=== PATIENT | female | born 1950 | race Caucasian/White ===

== ENCOUNTER 2017-01-15 23:50 | Emergency (ER) | payer BC, OTHER ==
[~2017-01-15] VITALS: Ht 157.5 cm; Wt 82.0 kg
[~2017-01-15 23:50] MED LIST: LANS30CA47 PO
[2017-01-15 23:53] VITALS: Ht 157.5 cm; Wt 82.0 kg
--- NOTE | 2017-01-16 01:51 | ERD ---
ER Documentation Chief Complaint Date/Time DATE: 01/16/17 TIME: 01:51 Chief Complaint pain with urination since Sunday HPI This is a 66-year-old female with a pain with urination since Sunday. She denies any fevers or chills. Denies any flank pain. Denies any nausea vomiting. Denies any other current issues. No blood in urine. ROS All systems reviewed and are negative except as per history of present illness. Medications Home Meds Reported Medications Lansoprazole* (Prevacid*) 30 Mg Capsule.dr, 30 MG PO BID 07/27/12 Allergies Allergies: Coded Allergies: No Known Allergy (Unverified , 07/27/12) PMhx/Soc History of Surgery: Yes (HYSTERECTOMY, GASTRIC SURGERY) Anesthesia Reaction: No Hx Neurological Disorder: No Hx Respiratory Disorders: No Hx Cardiac Disorders: No Hx Psychiatric Problems: No Hx Alcohol Use: No Hx Substance Use: No Hx Tobacco Use: No Physical Exam Vitals Vital Signs Date Time Temp Pulse Resp B/P Pulse Ox O2 Delivery O2 Flow Rate FiO2 01/15/17 23:53 99.2 77 18 156/82 98 Physical Exam Const: [] Head: Atraumatic Eyes: Normal Conjunctiva ENT: Normal External Ears, Nose and Mouth. Neck: Full range of motion..~ No meningismus. Resp: Clear to auscultation bilaterally Cardio: Regular rate and rhythm, no murmurs Abd: Soft, non tender, non distended. Normal bowel sounds Skin: No petechiae or rashes Back: No midline or flank tenderness Ext: No cyanosis, or edema Neur: Awake and alert Psych: Normal Mood and Affect Procedures/MDM Medical decision-makin 6 year female clinically with UTI. Patient has culture sent off. Pending culture, patient be discharged home with ciprofloxacin. Pyridium for pain. Follow-up with PMD. Return for worsening symptoms. Departure Diagnosis: Primary Impression: UTI (urinary tract infection) Urinary tract infection type: acute cystitis Hematuria presence: without hematuria Qualified Code: N30.00 - Acute cystitis without hematuria Condition: Stable MAGDALENA SUEFunmi Jan 16, 2017 01:51
[2017-01-16] MEDS ORDERED: PHEN-538 PO (01:53)
[2017-01-16] MEDS ORDERED: CIPR500T4 PO (01:53)
[2017-01-16 01:58] LABS: URINE BLOOD (Dip) POC 2+ (NEGATIVE)
[2017-01-16] MEDS ORDERED: CIPROFLOXACIN 500 MG TAB PO ONE (02:30)
[2017-01-16] MEDS ORDERED: PHENAZOPYRIDINE 100 MG TAB PO ONE (02:30)
[2017-01-16 03:17] LABS: ADD UMIC YES; URINE BILIRUBIN (Dip) NEGATIVE (NEGATIVE); URINE BLOOD (Dip) 3+ (NEGATIVE); URINE COLOR BROWN (YELLOW); URINE GLUCOSE (Dip) NEGATIVE (NEGATIVE); URINE KETONES (Dip) NEGATIVE (NEGATIVE); URINE LEUKOCYTE ESTERASE (Dip) 3+ (NEGATIVE); URINE NITRITE (Dip) NEGATIVE (NEGATIVE); URINE TOTAL PROTEIN (Dip) 2+ (NEGATIVE); URINE UROBILINOGEN (Dip) 0.2 E.U./dL (0.1-1.0)
[2017-01-16 04:07] LABS: BACTERIA,URINE MODERATE; SQUAMOUS EPITHELIAL CELL,UR FEW; URINE RBCS >200 /HPF (0)
== END 2017-01-16 02:23 | disposition home or self-care (01) ==
LOC: E/R 23:50
DX: N30.00 Acute cystitis without hematuria (principal)
CPT/HCPCS: 81001; 81003; 87086; 99283

== ENCOUNTER 2017-05-06 12:27 | Emergency (ER) | payer OTHER ==
[~2017-05-06] VITALS: Ht 165.1 cm; Wt 79.1 kg
[~2017-05-06 12:27] MED LIST changes: +CIPR500T4 PO; +PHEN-538 PO
[2017-05-06 12:30] VITALS: Ht 165.1 cm; Wt 79.1 kg
[2017-05-06] MEDS ORDERED: ALBUTEROL 0.5% (NEB) 2.5 MG/0.5 ML AMP INH STA (13:10)
[2017-05-06] MEDS ORDERED: METHYLPREDNISOLONE 125 MG INJ IM STA (13:10)
[2017-05-06] MEDS ORDERED: PRED20TA PO (15:25)
[2017-05-06] MEDS ORDERED: ALBU8.5H3 INH (15:25)
[2017-05-06] MEDS ORDERED: AZIT250T94 PO (15:25)
--- NOTE | 2017-05-06 15:29 | ERD ---
ER Documentation Chief Complaint Date/Time DATE: 05/06/17 TIME: 15:26 Chief Complaint cough, sob, after breathing tx @ clinic HPI This is a the 66-year-old female here for cough and wheezing. The patient states she has had a cough for 3 or 4 days and had some wheezing today so she went to an outside clinic and she was sent here. Patient says she has had this multiple times over the past year. There is no productive cough, no fever, no chest pain no dyspnea on exertion or orthopnea. ROS All systems reviewed and are negative except as per history of present illness. Medications Home Meds Active Scripts Albuterol Sulfate* (Proair HFA*) 8.5 Gm Hfa.aer.ad, 2 PUFF INH Q4, #1 INHALER Prov:BRENDAN HERNANDEZ DO 05/06/17 Azithromycin* (Zithromax*) 250 Mg Tablet, 250 MG PO .ZPACK DIRECTED, #6 TAB TAKE 500 MG (2 TABS) THE FIRST DAY THEN 250 MG (1 TAB) DAYS 2-5 Prov:BRENDAN HERNANDEZ DO 05/06/17 Prednisone* (Prednisone*) 20 Mg Tab, 60 MG PO DAILY for 5 Days, TAB Prov:BRENDAN HERNANDEZ DO 05/06/17 Phenazopyridine Hcl* (Pyridium*) 200 Mg Tab, 200 MG PO TID Y for URINARY PAIN, # 6 TAB Prov:MAGDALENA SUE 01/16/17 Ciprofloxacin Hcl* (Ciprofloxacin Hcl*) 500 Mg Tablet, 500 MG PO BID for 5 Days , TAB Prov:MAGDALENA SUE 01/16/17 Reported Medications Lansoprazole* (Prevacid*) 30 Mg Capsule.dr, 30 MG PO BID 07/27/12 Allergies Allergies: Coded Allergies: No Known Allergy (Unverified , 07/27/12) PMhx/Soc History of Surgery: Yes (HYSTERECTOMY, GASTRIC SURGERY) Anesthesia Reaction: No Hx Neurological Disorder: No Hx Respiratory Disorders: No Hx Cardiac Disorders: No Hx Psychiatric Problems: No Hx Alcohol Use: No Hx Substance Use: No Hx Tobacco Use: No Smoking Status: Never smoker FmHx Family History: No coronary disease Physical Exam Vitals Vital Signs Date Time Temp Pulse Resp B/P Pulse Ox O2 Delivery O2 Flow Rate FiO2 05/06/17 13:25 66 18 96 21 05/06/17 12:30 98.3 65 24 161/69 99 Physical Exam Const: Well-developed, well-nourished Head: Atraumatic, normocephalic Eyes: Normal Conjunctiva, PERRLA, EOMI, normal sclera, no nystagmus ENT: Normal External Ears, Nose and Mouth, moist mucus membranes. Neck: Full range of motion. No meningismus, no lymphadenopathy. Resp: [No increased work of breathing, good air movement, there is diffuse bilateral wheezing Cardio: Regular rate and rhythm, no murmurs, S1 S2 present Abd: Soft, non tender x 4, non distended. Normal bowel sounds, no guarding or rebound, no pulsitile abdominal masses or bruits Skin: No petechiae or rashes, no ecchymosis , no maculopapular rash Back: No midline or flank tenderness Ext: No cyanosis, or edema, FROM x 4, normal inspection, neurovascularly intact x 4 Neur: Awake and alert, STR 5/5 x 4, sensation intact x 4, no focal findings, cerebellum intact Psych: Normal Mood and Affect Results 24 hrs Current Medications Medications (Trade) Dose Ordered Sig/Neftali Route PRN Reason Start Time Stop Time Status Last Admin Dose Admin Albuterol (Proventil 0.5% (Neb)) 10 mg ONCE STAT INH 05/06/17 13:10 05/06/17 13:12 DC 05/06/17 13:23 Methylprednisolone Sodium Succinate (Solu-Medrol) 125 mg ONCE STAT IM 05/06/17 13:10 05/06/17 13:12 DC 05/06/17 13:19 Procedures/MDM After breathing treatment patient's lung sounds are clear she feels much better. We will discharge home with asthmatic bronchitis/reactive airway disease Departure Diagnosis: Primary Impression: Bronchitis Condition: Stable Patient Instructions: Bronchitis With Wheezing (Adult) BRENDAN HERNANDEZ DO May 06, 2017 15:29
== END 2017-05-06 15:32 | disposition home or self-care (01) ==
LOC: E/R 12:27
DX: J20.9 Acute bronchitis, unspecified (principal)
CPT/HCPCS: 94644; 96372; 99284; J2930

== ENCOUNTER 2019-04-13 19:12 | Emergency (ER) | payer MEDICARE, BC ==
[~2019-04-13] VITALS: Ht 170.2 cm; Wt 77.6 kg
[~2019-04-13 19:12] MED LIST changes: +ALBU8.5H8 INH; +AZIT250T PO; +CEPH-443 PO; +FAMO-96 PO; +PRED20TA PO
[2019-04-13 19:15] VITALS: Ht 170.2 cm; Wt 77.6 kg
[2019-04-13 21:10] VITALS: BP 116/63; PULSE 63; RESP 15
== END 2019-04-13 21:37 | disposition home or self-care (01) ==
LOC: E/R 19:12
DX: K92.2 Gastrointestinal hemorrhage, unspecified (principal); N30.00 Acute cystitis without hematuria; E86.0 Dehydration; K57.30 Diverticulosis of large intestine without perforation or abscess without bleeding; K44.9 Diaphragmatic hernia without obstruction or gangrene
CPT/HCPCS: 36415; 74176; 80053; 81001; 83690; 85025